=== PATIENT | female | born 1965 | race Hispanic/Latino ===

== ENCOUNTER 2019-08-02 13:13 | Emergency (ER) | payer MEDICAID ==
[2019-08-02 14:26] LABS: Basophils % (Auto) 0.8 % (0.0-1.8); Eosinophils # (Auto) 0.3 K/mm3 (0.0-0.4); Eosinophils % (Auto) 9.4 % (0.0-4.3); Hematocrit 27.6 % (30.3-42.9); Hemoglobin 9.2 gm/dl (10.1-14.3); Lymphocytes # (Auto) 0.5 K/mm3 (1.2-5.4); Lymphocytes % (Auto) 15.8 % (13.4-35.0); Mean Corpuscular HGB Conc 33 % (30-34); Mean Corpuscular Volume 87 fl (79-97); Monocytes # (Auto) 0.5 K/mm3 (0.0-0.8); Monocytes % (Auto) 15.6 % (0.0-7.3); Platelet Count 110 K/mm3 (140-440); Red Blood Count 3.16 M/mm3 (3.65-5.03); Red Cell Distribution Width 13.5 % (13.2-15.2)
--- NOTE | 2019-08-02 14:36 | Emergency Department Report ---
ED Chest Pain HPI - General Chief Complaint: Chest Pain Stated Complaint: CHEST PAIN Time Seen by Provider: 08/02/19 14:28 Source: EMS Mode of arrival: Stretcher Limitations: No Limitations - History of Present Illness Initial Comments: is a 53-year-old female that presents emergency room with complaints of right-sided chest pain and dizziness and itching to her back. She states her chest pain started this morning at 6 AM. Patient states it's in her right chest and is worse with palpation and movement and better with rest. Patient states her chest pain is a 3 out of 10. Patient denies chest pain radiating. Patient denies shortness of breath. She states she has a history of a left bundle- branch block. Patient states her dizziness started 3 days ago. Patient states it is better with rest and worse with standing up fast. Patient denies blurry vision. Patient denies headache. Patient denies passing out. Patient denies trauma. Patient denies headache. Patient states her back has been itching for 3 days. Patient states unable to take Benadryl since she is allergic. Patient denies bee stings or insect bite. Patient states he recently changed her laundry detergent. Patient denies fever and chills. MD Complaint: chest pain -: Sudden Onset: during rest Pain Location: right chest Pain Radiation: none Severity: mild Severity scale (0 -10): 3 Quality: pressure Consistency: constant Improves With: rest Worsens With: palpation, movement re: denies: nausea, vomting, diaphoresis, dyspnea, sense of impending doom Other Symptoms: denies: cough, fever, syncope, rash, acid taste in mouth, leg swelling, palpitations, burping Treatments Prior to Arrival: none Aspirin use within the Past 7 Days: (0) No - Related Data On Oral Contraceptives: No Previous Rx's Medication Instructions Recorded Last Taken Type Clindamycin [Clindamycin CAP] 300 mg PO Q8H #21 cap 02/09/19 Unknown Rx predniSONE [Deltasone] 20 mg PO QDAY #5 tab 02/09/19 Unknown Rx methylPREDNISolone [Medrol 4MG 4 mg PO DAILY 6 Days #1 tab.ds.pk 08/02/19 Unknown Rx DOSEPAK (21 tabs)] Allergies Allergy/AdvReac Type Severity Reaction Status Date / Time diphenhydramine Allergy Itching Verified 02/09/19 12:47 [From Benmateuszryl] folic acid Allergy Itching Verified 02/09/19 12:47 SULFATE Allergy Itching Uncoded 02/09/19 12:47 Heart Score - HEART Score History: Slightly suspicious EKG: Normal Age: 45-65 Risk factors: No known risk factors Troponin: < normal limit HEART Score: 1 ED Review of Systems ROS: Stated complaint: CHEST PAIN Other details as noted in HPI Constitutional: denies: chills, fever Eyes: denies: eye pain, eye discharge, vision change ENT: denies: ear pain, throat pain Respiratory: denies: cough, shortness of breath, wheezing Cardiovascular: chest pain. denies: palpitations Endocrine: no symptoms reported Gastrointestinal: denies: abdominal pain, nausea, diarrhea Genitourinary: denies: urgency, dysuria, discharge Musculoskeletal: denies: back pain, joint swelling, arthralgia Skin: as per HPI, pruritus. denies: rash, lesions Neurological: as per HPI, other. denies: headache, weakness, paresthesias Psychiatric: denies: anxiety, depression Hematological/Lymphatic: denies: easy bleeding, easy bruising ED Past Medical Hx - Past Medical History Previous Medical History?: Yes Hx Asthma: Yes Hx HIV: Yes Additional medical history: HIV ,bronchitis - Surgical History Past Surgical History?: No Additional Surgical History: C SECTION X2 TUBAL LIGATATION - Family History Family history: no significant - Social History Smoking Status: Current Every Day Smoker Substance Use Type: None - Medications Home Medications: Home Medications Medication Instructions Recorded Confirmed Last Taken Type Clindamycin [Clindamycin CAP] 300 mg PO Q8H #21 cap 02/09/19 Unknown Rx predniSONE [Deltasone] 20 mg PO QDAY #5 tab 02/09/19 Unknown Rx methylPREDNISolone [Medrol 4MG 4 mg PO DAILY 6 Days #1 tab.ds.pk 08/02/19 Unk nown Rx DOSEPAK (21 tabs)] ED Physical Exam - General Limitations: No Limitations General appearance: alert, in no apparent distress - Head Head exam: Present: atraumatic, normocephalic - Eye Eye exam: Present: normal appearance - ENT ENT exam: Present: mucous membranes moist - Neck Neck exam: Present: normal inspection - Respiratory Respiratory exam: Present: normal lung sounds bilaterally, chest wall tenderness. Absent: respiratory distress, wheezes, rales - Cardiovascular Cardiovascular Exam: Present: regular rate, normal rhythm. Absent: systolic murmur, diastolic murmur, rubs, gallop - GI/Abdominal GI/Abdominal exam: Present: soft, normal bowel sounds - Extremities Exam Extremities exam: Present: normal inspection - Back Exam Back exam: Present: normal inspection - Neurological Exam Neurological exam: Present: alert, oriented X3 - Psychiatric Psychiatric exam: Present: normal affect, normal mood - Skin Skin exam: Present: warm, dry, intact, rash (redness noted to the back with urticaria), erythema, urticaria ED Course Vital Signs 08/02/19 08/02/19 08/02/19 13:32 15:04 15:16 Temperature 98.6 F Pulse Rate 80 76 77 Respiratory 18 21 22 Rate Blood Pressure 105/69 105/69 Blood Pressure 124/84 [Right] O2 Sat by Pulse 100 100 100 Oximetry 08/02/19 08/02/19 08/02/19 15:29 15:30 15:31 Temperature Pulse Rate 80 79 Respiratory 18 10 L 17 Rate Blood Pressure 105/69 Blood Pressure 115/62 [Right] O2 Sat by Pulse 100 100 Oximetry 08/02/19 08/02/19 08/02/19 15:45 16:00 16:15 Temperature Pulse Rate 78 80 79 Respiratory 15 13 21 Rate Blood Pressure 102/62 115/72 Blood Pressure [Right] O2 Sat by Pulse 100 100 99 Oximetry 08/02/19 08/02/19 08/02/19 16:30 16:45 16:46 Temperature Pulse Rate 78 84 80 Respiratory 22 13 18 Rate Blood Pressure 97/58 97/58 Blood Pressure 97/58 [Right] O2 Sat by Pulse 100 100 100 Oximetry 08/02/19 08/02/19 08/02/19 17:01 17:15 17:30 Temperature Pulse Rate 86 81 83 Respiratory 17 21 24 Rate Blood Pressure 110/81 110/81 113/69 Blood Pressure [Right] O2 Sat by Pulse 99 100 100 Oximetry 08/02/19 08/02/19 08/02/19 17:45 18:00 18:15 Temperature Pulse Rate 80 77 77 Respiratory 24 22 24 Rate Blood Pressure 113/69 107/61 107/61 Blood Pressure [Right] O2 Sat by Pulse 100 99 99 Oximetry 08/02/19 08/02/19 18:30 19:30 Temperature Pulse Rate 76 80 Respiratory 23 23 Rate Blood Pressure 117/74 113/76 Blood Pressure [Right] O2 Sat by Pulse 100 99 Oximetry - Reevaluation(s) Reevaluation #1: Patient is still complaining of itching to her back. Patient denies chest pain. Patient states her dizziness has resolved. Patient will be given a liter of fluids and Solu-Medrol. I discussed all results with patient. I discussed plan of care with patient. Patient agrees with plan of care. Patient stable for discharge. Patient will be discharged home after saline bolus. I discussed all discharge instructions with patient. Patient voiced understanding of all instructions. 08/02/19 16:00 JOSE score - Jose Score Age > 65: (0) No Aspirin use within the Past 7 Days: (0) No 3 or more CAD Risk Factors: (0) No 2 or more Angina events in past 24 hrs: (0) No Known CAD with more than 50% Stenosis: (0) No Elevated Cardiac Markers: (0) No ST Deviation Greater than 0.5mm: (0) No JOSE Score: 0 ED Medical Decision Making - Lab Data Result diagrams: 08/02/19 14:01 08/02/19 14:01 - EKG Data -: EKG Interpreted by Ut EKG shows normal: sinus rhythm, axis, intervals, ST-T waves Rate: normal - EKG Data Interpretation: other (left bundle branch block) - Radiology Data Radiology results: report reviewed No acute findings on chest x-ray. - Medical Decision Making I've-year-old female that presents emergency room with complaints of right-sided chest pain and dizziness. Patient's dizziness secondary to inadequate water intake and dehydration. Patient's chest pain is musculoskeletal. Patient also complained of pruritus to the back. The pruritus consistent with contact dermatitis and allergic reaction. Patient given Solu-Medrol and fluids in the ER. Patient's symptoms completely resolved prior to discharge. Patient's labs unremarkable. Patient's EKG negative. Patient's chest x-ray negative. Patient's information faxed over to our local cardiology group for further outpatient workup. - Differential Diagnosis cp. dizziness. dehydration. allergic rxn. Critical care attestation.: If time is entered above; I have spent that time in minutes in the direct care of this critically ill patient, excluding procedure time. ED Disposition Clinical Impression: Dizziness, LBBB (left bundle branch block), Acute chest wall pain, Dehydration Chest pain Qualifiers: Chest pain type: unspecified Qualified Code(s): R07.9 - Chest pain, unspecified Anemia Qualifiers: Anemia type: unspecified type Qualified Code(s): D64.9 - Anemia, unspecified Contact dermatitis Qualifiers: Contact dermatitis type: allergic Contact dermatitis trigger: unspecified trigger Qualified Code(s): L23.9 - Allergic contact dermatitis, unspecified cause Disposition: TO HOME OR SELFCARE Is pt being admited?: No Does the pt Need Aspirin: No Condition: Stable Instructions: Chest Pain (ED), Dehydration (ED), Contact Dermatitis (ED), Iron Rich Diet (ED), Costochondritis (ED), Iron Deficiency Anemia (ED), Anemia (ED) Additional Instructions: Patient to follow-up with primary care in 2-3 days. Patient to follow-up with motion picture projectionist in 2-3 days. Patient to return to ER if condition worsens. Patient to take meds as directed. Patient to continue all previous medications. Patient increase water. Patient to rest. Patient to avoid strenuous exercise until cleared by primary care and motion picture projectionist. Patient increase water. Prescriptions: methylPREDNISolone [Medrol 4MG DOSEPAK (21 tabs)] 4 mg PO DAILY 6 Days #1 tab.ds.pk Referrals: PRIMARY MD TUNDE [Primary Care Provider] - 2-3 Days MIR CARTER MD [Staff Physician] - 2-3 Days Time of Disposition: 16:07
[2019-08-02 14:38] LABS: INR 1.02 (0.87-1.13)
[2019-08-02 14:39] LABS: Partial Thromboplastin Time 32.2 Sec. (24.2-36.6)
--- NOTE | 2019-08-02 14:41 | XRay Report ---
CHEST 1 VIEW INDICATION / CLINICAL INFORMATION: Chest Pain. COMPARISON: None available. FINDINGS: SUPPORT DEVICES: None. HEART / MEDIASTINUM: No significant abnormality. LUNGS / PLEURA: No significant pulmonary or pleural abnormality.. No pneumothorax. ADDITIONAL FINDINGS: Nipple shadows are noted bilaterally. IMPRESSION: 1. No acute findings. Signer Name: Dayne Hernandez MD Signed: 08/02/2019 2:37 PM Workstation Name: [id number]
[2019-08-02 14:45] LABS: Alanine Aminotransferase 5 units/L (7-56); Albumin 3.4 g/dL (3.9-5); BUN/Creatinine Ratio 19; Blood Urea Nitrogen 17 mg/dL (7-17); Calcium 8.5 mg/dL (8.4-10.2); Hemolysis Index 10
[2019-08-02] MEDS ORDERED: SODIUM CHLORIDE 0.9% 1000 ML 1,000 ML IV ONE (16:00)
[2019-08-02] MEDS ORDERED: methylPREDNISolone Sod Succinate 125 MG/2 ML INJ IV ONE (16:00)
[2019-08-02 20:13] VITALS: BP 113/76
== END 2019-08-02 19:50 | disposition home or self-care (01) ==
LOC: ED 13:13
DX: I44.7 Left bundle-branch block, unspecified (principal); L23.9 Allergic contact dermatitis, unspecified cause; E86.0 Dehydration; D64.9 Anemia, unspecified; J45.909 Unspecified asthma, uncomplicated; F17.200 Nicotine dependence, unspecified, uncomplicated; Z21 Asymptomatic human immunodeficiency virus [HIV] infection status; Z98.51 Tubal ligation status; Z79.899 Other long term (current) drug therapy; Z88.8 Allergy status to other drugs, medicaments and biological substances
CPT/HCPCS: 36415; 71045; 80053; 84484; 85025; 85610; 85730; 93005; 93010; 96361; 96374; 99284; J2930; J7030

== ENCOUNTER 2019-08-13 16:27 | Observation (INO) | payer MEDICAID ==
--- NOTE | 2019-08-13 18:12 | Event Note ---
ED Screening Note Date of service: 08/13/19 Time: 18:10 ED Screening Note: Pt complains of CP and SOB ongoing since last visit last week states 2 people said she had slurred speech today-+headache This initial assessment/diagnostic orders/clinical plan/treatment(s) is/are subject to change based on patients health status, clinical progression and re- assessment by fellow clinical providers in the ED. Further treatment and workup at subsequent clinical providers discretion. Patient/guardian urged not to elope from the ED as their condition may be serious if not clinically assessed and managed. Initial orders include: labs CT CXR
--- NOTE | 2019-08-13 19:03 | Cat Scan Report ---
CT BRAIN: 08/13/2019 INDICATION / CLINICAL INFORMATION: slurred speech, headache. COMPARISON: None available. FINDINGS: BRAIN/INTRACRANIAL STRUCTURES: Unenhanced CT images of the brain demonstrate no evidence of acute int racranial abnormality. Ventricles and sulci are slightly prominent in size for a patient of this age, consistent with diffus e cerebral atrophy. There is no evidence of hemorrhage or mass. There is no evidence of acute ischemic injury. There are no abnormal extra-axial fluid collections. EXTRACRANIAL STRUCTURES: Unremarkable. IMPRESSION: No acute abnormality. All CT scans at this location are performed using dose reduction to ALARA by means of automated expos ure control. Signer Name: Boris Lopez MD Signed: 08/13/2019 6:59 PM Workstation Name: [id number]
--- NOTE | 2019-08-13 19:04 | XRay Report ---
CHEST 2 VIEWS INDICATION / CLINICAL INFORMATION: MAIN: Chest Pain FOR ABOUT A WEEK . COMPARISON: Chest x-ray 08/02/2019 FINDINGS: SUPPORT DEVICES: None. HEART / MEDIASTINUM: Mild cardiomegaly with left ventricular configuration, unchanged LUNGS / PLEURA: No significant pulmonary or pleural abnormality. No pneumothorax. ADDITIONAL FINDINGS: Bilateral symmetric nipple shadows again noted. IMPRESSION: 1. Cardiomegaly without CHF Signer Name: Lenard Carbajal MD Signed: 08/13/2019 7:00 PM Workstation Name: [id number]
[2019-08-13 19:50] LABS: BUN/Creatinine Ratio 17; Blood Urea Nitrogen 15 mg/dL (7-17); Calcium 8.9 mg/dL (8.4-10.2); Hemolysis Index 3
[2019-08-13] MEDS ORDERED: ASPIRIN 81 MG TAB CHEW ONE (22:19)
[2019-08-13] MEDS ORDERED: NITROGLYCERIN 2% OINT 1 GM TP ONE (22:23)
[2019-08-13] MEDS: ASPIRIN 81 MG TAB CHEW PO ONE ×2 (22:24→22:26)
--- NOTE | 2019-08-13 22:30 | Emergency Department Report ---
HPI - General Chief Complaint: Chest Pain Time Seen by Provider: 08/13/19 18:12 - HPI HPI: Room 38 The pt is a 53 y/o F p/w a cc of CP. The pt states she'd had substernal CP intermittently since YD. Pt describes the pain as sharp in nature. Pt admits to SOB and nausea with her CP but denies vomiting or diaphoresis. Pt states her last stress test occurred in 2013 but she's never had a cardiac cath. the pt states her family told her her speech seemed slurred yesterday but the pt does not notice it ED Past Medical Hx - Past Medical History Hx Asthma: Yes Hx HIV: Yes (nl CD4 2016) Additional medical history: HIV ,bronchitis - Surgical History Additional Surgical History: C SECTION X2 TUBAL LIGATATION - Family History Family history: no significant - Social History Smoking Status: Current Every Day Smoker (/ ppd) Substance Use Type: Alcohol (rarely), Marijuana - Medications Home Medications: Home Medications Medication Instructions Recorded Confirmed Last Taken Type Clindamycin [Clindamycin CAP] 300 mg PO Q8H #21 cap 02/09/19 Unknown Rx predniSONE [Deltasone] 20 mg PO QDAY #5 tab 02/09/19 Unknown Rx methylPREDNISolone [Medrol 4MG 4 mg PO DAILY 6 Days #1 tab.ds.pk 08/02/19 Unknown Rx DOSEPAK (21 tabs)] ED Review of Systems ROS: Stated complaint: CHEST PAIN Other details as noted in HPI Constitutional: denies: diaphoresis Eyes: denies: eye pain ENT: denies: throat pain Respiratory: shortness of breath, SOB with exertion Cardiovascular: chest pain Endocrine: no symptoms reported Gastrointestinal: nausea. denies: vomiting Genitourinary: denies: dysuria Musculoskeletal: denies: back pain Neurological: denies: headache Physical Exam - Physical Exam Vital Signs: Vital Signs 08/13/19 08/13/19 17:16 18:14 Temperature 98.4 F Pulse Rate 98 H Respiratory 16 Rate Blood Pressure 87/69 Blood Pressure 110/70 [Right] O2 Sat by Pulse 100 Oximetry Physical Exam: GEN: WD WN F lying on stretcher in NAD HEENT: NCAT, EOMI NECK:Trachea midline, no stridor CV: rrr no m/r/g Pulm: CTAB. no resp distress ABD: s/nt/nd +BS Neuro: GCS 15 SKIN: no diaphoresis MS: no evidence of acute injury ED Course Vital Signs 08/13/19 08/13/19 17:16 18:14 Temperature 98.4 F Pulse Rate 98 H Respiratory 16 Rate Blood Pressure 87/69 Blood Pressure 110/70 [Right] O2 Sat by Pulse 100 Oximetry ED Medical Decision Making - Lab Data Result diagrams: 08/14/19 00:01 08/13/19 19:17 Laboratory Tests 08/13/19 08/13/19 08/14/19 19:17 19:17 00:01 WBC 3.6 L RBC 3.21 L Hgb 9.5 L Hct 29.0 L MCV 90 MCH 30 MCHC 33 RDW 14.5 Plt Count 113 L Lymph % (Auto) Scrubbing Machine Operator Harmon % (Auto) Scrubbing Machine Operator Eos % (Auto) Scrubbing Machine Operator Baso % (Auto) Scrubbing Machine Operator Lymph # Scrubbing Machine Operator Harmon # Scrubbing Machine Operator Eos # Scrubbing Machine Operator Baso # Scrubbing Machine Operator Seg Neutrophils % Scrubbing Machine Operator Seg Neutrophils # Scrubbing Machine Operator Sodium 149 H Potassium 3.6 Chloride 115.7 H Carbon Dioxide 23 Anion Gap 14 BUN 15 Creatinine 0.9 Estimated GFR > 60 BUN/Creatinine Ratio 17 Glucose 93 Calcium 8.9 Troponin T < 0.010 NT-Pro-B Natriuret Pep 117.0 - EKG Data -: EKG Interpreted by Me EKG shows normal: sinus rhythm Rate: normal - EKG Data When compared to previous EKG there are: changes noted Interpretation: nonspecific ST-T wave petrona (TWIs in leads 2, 3, avF) - Radiology Data Radiology results: report reviewed (CXR, CT Head), image reviewed (CXR, CT head) interpreted by me: CR- no focal infiltrate, no ptx [address] [address] XRay Report Signed Patient: KAM ROBLERO MR#: [id number] 57 : 1965 Acct:[id number] Age/Sex: 53 / F ADM Date: 08/13/19 Loc: ED Attending Dr: Ordering Physician: LYNETTE WILCOX Date of Service: 08/13/19 Procedure(s): XR chest routine 2V Accession Number(s): [id number] cc: LYNETTE WILCOX Fluoro Time In Minutes: CHEST 2 VIEWS INDICATION / CLINICAL INFORMATION: MAIN: Chest Pain FOR ABOUT A WEEK . COMPARISON: Chest x-ray 08/02/2019 FINDINGS: SUPPORT DEVICES: None. HEART / MEDIASTINUM: Mild cardiomegaly with left ventricular configuration, unchanged LUNGS / PLEURA: No significant pulmonary or pleural abnormality. No pneumothorax. ADDITIONAL FINDINGS: Bilateral symmetric nipple shadows again noted. IMPRESSION: 1. Cardiomegaly without CHF Signer Name: Lenard Carbajal MD Signed: 08/13/2019 7:00 PM Workstation Name: [id number] Transcribed By: TL Dictated By: Lenard Carbajal MD Electronically Authenticated By: Lenard Carbajal MD Signed Date/Time: 08/13/191899 DD/ 58 TD/TT: [facility] [address] [place] [address] Cat Scan Report Signed Patient: KAM ROBLERO MR#: [id number] 57 : 1965 Acct:[id number] Age/Sex: 53 / F ADM Date: 08/13/19 Loc: ED Attending Dr: Ordering Physician: LYNETTE WILCOX Date of Service: 08/13/19 Procedure(s): CT head/brain wo con Accession Number(s): [id number] cc: LYNETTE WILCOX CT BRAIN: 08/13/2019 INDICATION / CLINICAL INFORMATION: slurred speech, headache. COMPARISON: None available. FINDINGS: BRAIN/INTRACRANIAL STRUCTURES: Unenhanced CT images of the brain demonstrate no evidence of acute intracranial abnormality. Ventricles and sulci are slightly prominent in size for a patient of this age, consistent with diffuse cerebral atrophy. There is no evidence of hemorrhage or mass. There is no evidence of acute ischemic injury. There are no abnormal extra-axial fluid collections. EXTRACRANIAL STRUCTURES: Unremarkable. IMPRESSION: No acute abnormality. All CT scans at this location are performed using dose reduction to ALARA by means of automated exposure control. Signer Name: Boris Lopez MD Signed: 08/13/2019 6:59 PM Workstation Name: [id number] Transcribed By: AO Dictated By: Boris Lopez MD Electronically Authenticated By: Boris Lopez MD Signed Date/Time: 08/13/191858 DD/ 57 TD/TT: - Differential Diagnosis ACS, pericarditis, GERD Critical care attestation.: If time is entered above; I have spent that time in minutes in the direct care of this critically ill patient, excluding procedure time. ED Disposition Clinical Impression: Chest pain Disposition: OP ADMIT IP TO THIS HOSP Is pt being admited?: Yes Does the pt Need Aspirin: Yes Condition: Fair Instructions: Chest Pain (ED) Referrals: KRISTIAN DONAHUE MD [Primary Care Provider] - 3-5 Days Time of Disposition: 01:00 (Hospitalist notified (Dr Emperatriz Chauhan))
[2019-08-14 00:53] LABS: Hemoglobin 9.5 gm/dl (10.1-14.3); Mean Corpuscular HGB Conc 33 % (30-34); Mean Corpuscular Volume 90 fl (79-97); Platelet Count 113 K/mm3 (140-440); Red Blood Count 3.21 M/mm3 (3.65-5.03); Red Cell Distribution Width 14.5 % (13.2-15.2)
[2019-08-14] MEDS ORDERED: ONDANSETRON 4 MG/2 ML INJ IV PRN (01:13)
[2019-08-14] MEDS ORDERED: MORPHINE 2 MG/1 ML INJ IV PRN (01:13)
[2019-08-14] MEDS ORDERED: ACETAMINOPHEN 325 MG TAB PO PRN (01:13)
[2019-08-14] MEDS ORDERED: NITROGLYCERIN 0.4 MG TAB SUBL SL PRN (01:21)
--- NOTE | 2019-08-14 01:44 | History and Physical Report ---
<CHELSI THOMPSON Travon - Last Filed: 08/14/19 01:39> History of Present Illness Date of examination: 08/14/19 Date of admission: 08/14/2019 Chief complaint: Chest Pain History of present illness: 53-year-old -Citizen Of [place] female who is an ongoing smoker with history of HIV, asthma, and bronchitis who presents [facility] ED with complaints of intermittent chest pain for the past 2-3 days. Patient states that she has been experiencing intermittent left side chest pain with radiation to left breast, shortness of breath and nausea for the past 2-3 days. She describes her pain as sharp/pressure and rates it 7/10. She denies emesis and diaphoresis. Additionally she complains of intermittent generalized headache. CT head was negative for acute abnormalities. Patient admits to being off of antiretroviral medication for the past 2 years because she "got tired of taking a pill every day". Patient has been living in the clinic area for the past 10 months. She recently established care with a PCP (Dr. Indy Forrest), and has a scheduled appointment for next week. Past History Past Medical History: HIV/AIDS (off antiretroviral meds for past 2yrs), other (asthma, bronchitis) Past Surgical History: (x2), Other (tubal ligation) Social history: lives with family, smoking (1/3 pack per day, recreational marijuana use), alcohol abuse (occasional EtOH use) Family history: no significant family history Medications and Allergies Allergies Allergy/AdvReac Type Severity Reaction Status Date / Time diphenhydramine Allergy Itching Verified 02/09/19 12:47 [From Benadryl] folic acid Allergy Itching Verified 02/09/19 12:47 SULFATE Allergy Itching Uncoded 02/09/19 12:47 Home Medications Medication Instructions Recorded Confirmed Last Taken Type methylPREDNISolone [Medrol 4MG 4 mg PO DAILY 6 Days #1 tab.ds.pk 08/02/19 08/14/19 Unknown Rx DOSEPAK (21 tabs)] Active Meds: Active Medications Acetaminophen (Tylenol) 650 mg PO Q4H PRN PRN Reason: Pain MILD(1-3)/Fever >100.5/ZAPIEN Aspirin (Baby Aspirin) 81 mg PO QDAY MALIKA Atorvastatin Calcium (Lipitor) 20 mg PO QHS MALIKA Dextrose/Sodium Chloride (D5/0.45ns) 1,000 mls @ 75 mls/hr IV DIRECT MALIKA Morphine Sulfate (Morphine) 2 mg IV Q4H PRN PRN Reason: Pain, Moderate (4-6) Nitroglycerin (Nitrostat) 0.4 mg SL Q5M PRN PRN Reason: Chest Pain Ondansetron HCl (Zofran) 4 mg IV Q6H PRN PRN Reason: Nausea And Vomiting Sodium Chloride (Sodium Chloride Flush Syringe 10 Ml) 10 ml IV BID MALIKA Sodium Chloride (Sodium Chloride Flush Syringe 10 Ml) 10 ml IV PRN PRN PRN Reason: LINE FLUSH Sodium Chloride (Sodium Chloride Flush Syringe 10 Ml) 10 ml IV PRN PRN PRN Reason: LINE FLUSH Review of Systems All systems: negative Cardiovascular: chest pain (under left breast), shortness of breath Gastrointestinal: nausea Neurological: headaches Exam - Physical Exam Narrative exam: Physical exam General appearance: Present: No apparent distress, alert and oriented 3, well- developed, thin, -Citizen Of [place] female - EENT Eyes: Present: PERRL, EOM intact ENT: hearing intact - Neck Neck: Present: supple, normal ROM - Respiratory Respiratory effort: Non-labored Respiratory: CTA bilaterally - Cardiovascular Heart rate: 91 (bpm) Rhythm: SR, left bundle branch block, nonspecific ST abnormalities Heart Sounds: Present: S1 & S2. Absent: rub, click - Extremities Extremities: no ischemia, pulses intact, - Peripheral Assessment Peripheral Pulses: within normal limits - Abdominal General gastrointestinal: soft, non-tender, normal bowel sounds - Integumentary Integumentary: Present: warm, dry - Musculoskeletal Musculoskeletal: able to move all extremities 4 -Neurological Neurological: CN II-XII grossly intact - Psychiatric Psychiatric: cooperative - Constitutional Vitals: Temp Pulse Resp BP Pulse Ox 98.4 F 86 20 129/82 99 08/14/19 01:12 08/14/19 01:12 08/14/19 01:12 08/14/19 01:12 08/14/19 01:12 Results - Labs CBC & Chem 7: 08/14/19 00:01 08/13/19 19:17 Labs: Laboratory Last Values WBC 3.6 K/mm3 (4.5-11.0) L 08/14/19 00:01 RBC 3.21 M/mm3 (3.65-5.03) L 08/14/19 00:01 Hgb 9.5 gm/dl (10.1-14.3) L 08/14/19 00:01 Hct 29.0 % (30.3-42.9) L 08/14/19 00:01 MCV 90 fl (79-97) 08/14/19 00:01 MCH 30 pg (28-32) 08/14/19 00:01 MCHC 33 % (30-34) 08/14/19 00:01 RDW 14.5 % (13.2-15.2) 08/14/19 00:01 Plt Count 113 K/mm3 (140-440) L 08/14/19 00:01 Lymph % (Auto) Customer Service Associate 08/14/19 00:01 Bath % (Auto) Customer Service Associate 08/14/19 00:01 Eos % (Auto) Customer Service Associate 08/14/19 00:01 Baso % (Auto) Customer Service Associate 08/14/19 00:01 Lymph # Customer Service Associate 08/14/19 00:01 Bath # Customer Service Associate 08/14/19 00:01 Eos # Customer Service Associate 08/14/19 00:01 Baso # Customer Service Associate 08/14/19 00:01 Seg Neutrophils % Customer Service Associate 08/14/19 00:01 Seg Neutrophils # Customer Service Associate 08/14/19 00:01 Sodium 149 mmol/L (137-145) H 08/13/19 19:17 Potassium 3.6 mmol/L (3.6-5.0) 08/13/19 19:17 Chloride 115.7 mmol/L (98-107) H 08/13/19 19:17 Carbon Dioxide 23 mmol/L (22-30) 08/13/19 19:17 Anion Gap 14 mmol/L 08/13/19 19:17 BUN 15 mg/dL (7-17) 08/13/19 19:17 Creatinine 0.9 mg/dL (0.7-1.2) 08/13/19 19:17 Estimated GFR > 60 ml/min 08/13/19 19:17 BUN/Creatinine Ratio 17 % 08/13/19 19:17 Glucose 93 mg/dL (65-100) 08/13/19 19:17 Calcium 8.9 mg/dL (8.4-10.2) 08/13/19 19:17 Troponin T < 0.010 ng/mL (0.00-0.029) 08/13/19 19:17 NT-Pro-B Natriuret Pep 117.0 pg/mL (0-900) 08/13/19 19:17 - Imaging and Cardiology Imaging and Cardiology: CXR: FINDINGS: SUPPORT DEVICES: None. HEART / MEDIASTINUM: Mild cardiomegaly with left ventricular configuration, unchanged LUNGS / PLEURA: No significant pulmonary or pleural abnormality. No pneumothorax. ADDITIONAL FINDINGS: Bilateral symmetric nipple shadows again noted. IMPRESSION: 1. Cardiomegaly without CHF CT Head: FINDINGS: BRAIN/INTRACRANIAL STRUCTURES: Unenhanced CT images of the brain demonstrate no evidence of acute intracranial abnormality. Ventricles and sulci are slightly prominent in size for a patient of this age, consistent with diffuse cerebral atrophy. There is no evidence of hemorrhage or mass. There is no evidence of acute ischemic injury. There are no abnormal extra-axial fluid collections. EXTRACRANIAL STRUCTURES: Unremarkable. IMPRESSION: No acute abnormality. Assessment and Plan Assessment and plan: 53-year-old -Citizen Of [place] female who is an ongoing smoker with history of HIV noncompliant with meds, asthma, and bronchitis who presents [facility] ED with complaints of intermittent chest pain for the past 2-3 days. Additionally she complains of intermittent generalized headache. CT head was negative for acute abnormalities. Acute Chest Pain R/O ACS -EKG shows sinus rhythm with nonspecific ST abnormalities -Initiate chest pain protocol -Continuous telemetry monitoring -Continue supportive care -Pain mgmt -Troponin neg x1 , will continue to trend -Lexiscan pending -Cardiology consulted Hyernatremia -Na on admission 149 -Slowly correct Na with isotonic IVF -Continue to monitor Thrombocytopenia -Plt 113 -Denies use of antiplatelet drugs -Hold ASA Anemia -Hemoglobin on admission 9.5 -No s/s of active bleeding -Continue to monitor hemoglobin -Transfuse as needed Tobacco abuse -Smokes 1/3 pack per day -Counseled for cessation -Nicotine patch prn Asthma -Albuterol prn HIV -Off anti-retroviral meds for the past 2 years -Recently established with Dr. Marilin Forrest (PCP), who will check CD4 and restart HAART DVT PPX -SCD's -Hold off on systemic anticoagulation due to anemia and thrombocytopenia Advance Directives: No VTE prophylaxis?: Chemical Plan of care discussed with patient/family: Yes <WANDER CANCHOLA - Last Filed: 08/14/19 05:44> History of Present Illness Date of admission: 08/14/19 01:13 Medications and Allergies Active Meds: Active Medications Acetaminophen (Tylenol) 650 mg PO Q4H PRN PRN Reason: Pain MILD(1-3)/Fever >100.5/ZAPIEN Albuterol (Proventil) 2.5 mg IH Q4HRT PRN PRN Reason: Shortness Of Breath Atorvastatin Calcium (Lipitor) 20 mg PO QHS [facility] Dextrose/Sodium Chloride (D5/0.45ns) 1,000 mls @ 75 mls/hr IV DIRECT MALIKA Last Admin: 08/14/19 04:42 Dose: 75 mls/hr Documented by: Morphine Sulfate (Morphine) 2 mg IV Q4H PRN PRN Reason: Pain, Moderate (4-6) Nicotine (Habitrol) 14 mg TD QDAY [facility] Nitroglycerin (Nitrostat) 0.4 mg SL Q5M PRN PRN Reason: Chest Pain Ondansetron HCl (Zofran) 4 mg IV Q6H PRN PRN Reason: Nausea And Vomiting Sodium Chloride (Sodium Chloride Flush Syringe 10 Ml) 10 ml IV BID MALIKA Sodium Chloride (Sodium Chloride Flush Syringe 10 Ml) 10 ml IV PRN PRN PRN Reason: LINE FLUSH Exam - Constitutional Vitals: Temp Pulse Resp BP Pulse Ox 98.4 F 86 20 129/82 99 08/14/19 01:12 08/14/19 01:12 08/14/19 01:12 08/14/19 01:12 08/14/19 01:12 Results - Labs CBC & Chem 7: 08/14/19 00:01 08/14/19 03:46 Labs: Laboratory Last Values WBC 3.6 K/mm3 (4.5-11.0) L 08/14/19 00:01 RBC 3.21 M/mm3 (3.65-5.03) L 08/14/19 00:01 Hgb 9.5 gm/dl (10.1-14.3) L 08/14/19 00:01 Hct 29.0 % (30.3-42.9) L 08/14/19 00:01 MCV 90 fl (79-97) 08/14/19 00:01 MCH 30 pg (28-32) 08/14/19 00:01 MCHC 33 % (30-34) 08/14/19 00:01 RDW 14.5 % (13.2-15.2) 08/14/19 00:01 Plt Count 113 K/mm3 (140-440) L 08/14/19 00:01 Lymph % (Auto) Customer Service Associate 08/14/19 00:01 Bath % (Auto) Customer Service Associate 08/14/19 00:01 Eos % (Auto) Customer Service Associate 08/14/19 00:01 Baso % (Auto) Customer Service Associate 08/14/19 00:01 Lymph # Customer Service Associate 08/14/19 00:01 Bath # Customer Service Associate 08/14/19 00:01 Eos # Customer Service Associate 08/14/19 00:01 Baso # Customer Service Associate 08/14/19 00:01 Add Manual Diff Complete 08/14/19 00:01 Total Counted 100 08/14/19 00:01 Seg Neutrophils % Customer Service Associate 08/14/19 00:01 Seg Neuts % (Manual) 75.0 % (40.0-70.0) H 08/14/19 00:01 Band Neutrophils % 0 % 08/14/19 00:01 Lymphocytes % (Manual) 8.0 % (13.4-35.0) L 08/14/19 00:01 Reactive Lymphs % (Man) 0 % 08/14/19 00:01 Monocytes % (Manual) 10.0 % (0.0-7.3) H 08/14/19 00:01 Eosinophils % (Manual) 7.0 % (0.0-4.3) H 08/14/19 00:01 Basophils % (Manual) 0 % (0.0-1.8) 08/14/19 00:01 Metamyelocytes % 0 % 08/14/19 00:01 Myelocytes % 0 % 08/14/19 00:01 Promyelocytes % 0 % 08/14/19 00:01 Blast Cells % 0 % 08/14/19 00:01 Nucleated RBC % Not Reportable 08/14/19 00:01 Seg Neutrophils # Customer Service Associate 08/14/19 00:01 Seg Neutrophils # Man 2.7 K/mm3 (1.8-7.7) 08/14/19 00:01 Band Neutrophils # 0.0 K/mm3 08/14/19 00:01 Lymphocytes # (Manual) 0.3 K/mm3 (1.2-5.4) L 08/14/19 00:01 Abs React Lymphs (Man) 0.0 K/mm3 08/14/19 00:01 Monocytes # (Manual) 0.4 K/mm3 (0.0-0.8) 08/14/19 00:01 Eosinophils # (Manual) 0.3 K/mm3 (0.0-0.4) 08/14/19 00:01 Basophils # (Manual) 0.0 K/mm3 (0.0-0.1) 08/14/19 00:01 Metamyelocytes # 0.0 K/mm3 08/14/19 00:01 Myelocytes # 0.0 K/mm3 08/14/19 00:01 Promyelocytes # 0.0 K/mm3 08/14/19 00:01 Blast Cells # 0.0 K/mm3 08/14/19 00:01 WBC Morphology Not Reportable 08/14/19 00:01 Hypersegmented Neuts Not Reportable 08/14/19 00:01 Hyposegmented Neuts Not Reportable 08/14/19 00:01 Hypogranular Neuts Not Reportable 08/14/19 00:01 Smudge Cells Not Reportable 08/14/19 00:01 Toxic Granulation Not Reportable 08/14/19 00:01 Toxic Vacuolation Not Reportable 08/14/19 00:01 Dohle Bodies Not Reportable 08/14/19 00:01 Pelger-Huet Anomaly Not Reportable 08/14/19 00:01 Jd Rods Not Reportable 08/14/19 00:01 Platelet Estimate Appears decreased 08/14/19 00:01 Clumped Platelets Not Reportable 08/14/19 00:01 Plt Clumps, EDTA Not Reportable 08/14/19 00:01 Large Platelets Not Reportable 08/14/19 00:01 Giant Platelets Not Reportable 08/14/19 00:01 Platelet Satelliting Not Reportable 08/14/19 00:01 Plt Morphology Comment Not Reportable 08/14/19 00:01 RBC Morphology Not Reportable 08/14/19 00:01 Dimorphic RBCs Not Reportable 08/14/19 00:01 Polychromasia Not Reportable 08/14/19 00:01 Hypochromasia Not Reportable 08/14/19 00:01 Poikilocytosis Not Reportable 08/14/19 00:01 Anisocytosis 1+ 08/14/19 00:01 Microcytosis Not Reportable 08/14/19 00:01 Macrocytosis Not Reportable 08/14/19 00:01 Spherocytes Not Reportable 08/14/19 00:01 Pappenheimer Bodies Not Reportable 08/14/19 00:01 Sickle Cells Not Reportable 08/14/19 00:01 Target Cells Not Reportable 08/14/19 00:01 Tear Drop Cells Not Reportable 08/14/19 00:01 Ovalocytes 1+ 08/14/19 00:01 Helmet Cells Not Reportable 08/14/19 00:01 Wesley-Why Bodies Not Reportable 08/14/19 00:01 Hasty Rings Not Reportable 08/14/19 00:01 [place] Cells Not Reportable 08/14/19 00:01 Bite Cells Not Reportable 08/14/19 00:01 Crenated Cell Not Reportable 08/14/19 00:01 Elliptocytes Not Reportable 08/14/19 00:01 Acanthocytes (Spur) Not Reportable 08/14/19 00:01 Rouleaux Not Reportable 08/14/19 00:01 Hemoglobin C Crystals Not Reportable 08/14/19 00:01 Schistocytes Not Reportable 08/14/19 00:01 Malaria parasites Not Reportable 08/14/19 00:01 Kleber Bodies Not Reportable 08/14/19 00:01 Hem Pathologist Commnt No 08/14/19 00:01 Sodium 148 mmol/L (137-145) H 08/14/19 03:46 Potassium 4.3 mmol/L (3.6-5.0) 08/14/19 03:46 Chloride 115.8 mmol/L (98-107) H 08/14/19 03:46 Carbon Dioxide 20 mmol/L (22-30) L 08/14/19 03:46 Anion Gap 17 mmol/L 08/14/19 03:46 BUN 16 mg/dL (7-17) 08/14/19 03:46 Creatinine 0.9 mg/dL (0.7-1.2) 08/14/19 03:46 Estimated GFR > 60 ml/min 08/14/19 03:46 BUN/Creatinine Ratio 18 % 08/14/19 03:46 Glucose 77 mg/dL (65-100) 08/14/19 03:46 Calcium 8.8 mg/dL (8.4-10.2) 08/14/19 03:46 Troponin T < 0.010 ng/mL (0.00-0.029) 08/13/19 19:17 NT-Pro-B Natriuret Pep 117.0 pg/mL (0-900) 08/13/19 19:17 Triglycerides 65 mg/dL (2-149) 08/14/19 03:46 Cholesterol 136 mg/dL (50-199) 08/14/19 03:46 LDL Cholesterol Direct 92 mg/dL (50-130) 08/14/19 03:46 HDL Cholesterol 43 mg/dL (40-59) 08/14/19 03:46 Cholesterol/HDL Ratio 3.16 % 08/14/19 03:46 Urine Color Yellow (Yellow) 08/14/19 04:42 Urine Turbidity Clear (Clear) 08/14/19 04:42 Urine pH 5.0 (5.0-7.0) 08/14/19 04:42 Ur Specific Egnar 1.024 (1.003-1.030) 08/14/19 04:42 Urine Protein 30 mg/dl mg/dL (Negative) 08/14/19 04:42 Urine Glucose (UA) Neg mg/dL (Negative) 08/14/19 04:42 Urine Ketones Neg mg/dL (Negative) 08/14/19 04:42 Urine Blood Neg (Negative) 08/14/19 04:42 Urine Nitrite Neg (Negative) 08/14/19 04:42 Urine Bilirubin Neg (Negative) 08/14/19 04:42 Urine Urobilinogen 2.0 mg/dL (<2.0) 08/14/19 04:42 Ur Leukocyte Esterase Neg (Negative) 08/14/19 04:42 Urine WBC (Auto) 2.0 /HPF (0.0-6.0) 08/14/19 04:42 Urine RBC (Auto) < 1.0 /HPF (0.0-6.0) 08/14/19 04:42 U Epithel Cells (Auto) 1.0 /HPF (0-13.0) 08/14/19 04:42 Urine Mucus 1+ /HPF 08/14/19 04:42 Assessment and Plan Assessment and plan: Patient seen and examined, d/w STUDY LEAD, agree with plan as stated above, hold cardiology consult for now
[2019-08-14] MEDS ORDERED: ALBUTEROL 2.5 MG/3 ML NEBU IH PRN (01:51)
[2019-08-14 02:44] LABS: Basophils % (Manual) 0 % (0.0-1.8); Total Cells Counted 100
[2019-08-14 02:45] LABS: Anisocytosis 1+; Ovalocytes 1+; Platelet Estimate Appears Decreased
[2019-08-14] MEDS ORDERED: D5W/0.45% NACL 1,000 ML IV ONE (04:27)
[2019-08-14 04:40] LABS: BUN/Creatinine Ratio 18; Blood Urea Nitrogen 16 mg/dL (7-17); Calcium 8.8 mg/dL (8.4-10.2); Chol/HDL Ratio 3.16 %; HDL Cholesterol 43 mg/dL (40-59); Hemolysis Index 19; LDL Cholesterol,Direct 92 mg/dL (50-130)
[2019-08-14] MEDS: D5W/0.45% NACL 1,000 ML IV SCH ×2 (04:42→18:49)
[2019-08-14 05:05] LABS: Bilirubin,Urine NEG (Negative); Blood,Urine NEG (Negative); Color,Urine Yellow (Yellow); Mucus,Urine 1+ /HPF; RBC,Urine < 1.0 /HPF (0.0-6.0)
[2019-08-14] MEDS ORDERED: REGADENOSON 0.4 MG/5 ML INJ IV ONE ×2 (06:50→06:55)
[2019-08-14 07:43] LABS: Creatine Kinase MB < 1.0 ng/mL (0.0-4.0)
[2019-08-14] MEDS: NICOTINE 14 MG/24 HR PATCH TD SCH (12:18)
--- NOTE | 2019-08-14 14:49 | Discharge Summary ---
Providers - Providers Date of Admission: 08/14/19 01:13 Date of discharge: 08/14/19 Attending physician: KENZIE ZAVALA 08/14/19 Consult to Cardiac Rehabilitation [CONS] Routine Reason For Exam: Phase I Primary care physician: MARILIN FORREST Hospitalization Condition: Poor Hospital course: Patient is a 53 yo woman with a history of HIV noncompliant with meds, asthma, and bronchitis who presents [facility] ED with complaints of intermittent chest pain for the past 2-3 days. Additionally she complains of intermittent generalized headache. CT head was negative for acute abnormalities. CXR: IMPRESSION: 1. Cardiomegaly without CHF Acute Chest Pain, most likely costochondritiis R/O ACS -EKG shows sinus rhythm with nonspecific ST abnormalities -Initiate chest pain protocol -Continuous telemetry monitoring -Continue supportive care -Pain mgmt -Troponin neg x1 , will continue to trend -Lexiscan pending -Cardiology consulted Hyernatremia -Na on admission 149 -Slowly correct Na with free water -Continue to monitor Thrombocytopenia -Plt 113 -Denies use of antiplatelet drugs -Hold ASA Anemia -Hemoglobin on admission 9.5 -No s/s of active bleeding -Continue to monitor hemoglobin -Transfuse as needed Tobacco abuse -Smokes 1/3 pack per day -Counseled for cessation -Nicotine patch prn Asthma -Albuterol prn HIV -Off anti-retroviral meds for the past 2 years -Recently established with Dr. 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 prolonged inpatient services 31 minutes Disposition: DC-01 TO HOME OR SELFCARE Time spent for discharge: 34 minutes Core Measure Documentation - Palliative Care Palliative Care/ Comfort Measures: Not Applicable - Core Measures Any of the following diagnoses?: none - VTE Discharge Requirements Deep Vein Thrombosis/Pulmonary Embolism Present on Admission: No Has pt received <5 days of overlap therapy or INR<2.0: No Anticoagulant overlap therapy prescribed at discharge: No Contraindication No Overlap Therapy order at DC: Not Indicated Exam - Physical Exam Narrative exam: Gen: thin cachetic, bmi 17 NAD, Awake, Alert, Orientated HEENT: NCAT, EOMI, PERRL, OP Clear Neck: supple, no adenopathy, no thyromegaly, no JVD CVS/Heart: RRR, normal S1S2, pulses present bilaterally Chest/Lungs: CTA B, Symmetrical chest expansion, good air entry bilaterally, reproducible chest wall tenderness GI/Abdomen: soft, NTND, good bowel sounds, no guarding or rebound /Bladder: no suprapubic tenderness, no CVA or paraspinal tenderness Extermity/Skin: no c/c/e, no obvious rash MSK: FROM x 4 Neuro: CN 2-12 grossly intact, no new focal deficits Psych: calm - Constitutional Vitals: Temp Pulse Resp BP Pulse Ox 99.4 F 94 H 18 113/71 99 08/14/19 07:14 08/14/19 13:22 08/14/19 13:22 08/14/19 10:22 08/14/19 14:28 Plan Activity: other (no strenous activity unless cleared by PCP) Diet: low salt Special Instructions: record daily BP diary, smoking cessation Follow up with: MARILIN FORREST MD [Primary Care Provider] - 3-5 Days Prescriptions: Nicotine [Habitrol] 14 mg TD QDAY #14 patch
--- NOTE | 2019-08-14 22:46 | Treadmill Report ---
THALLIUM STRESS TEST LEFT VENTRICLE: Left ventricular chamber size is within normal spread. Perfusion study demonstrates homogeneous uptake of the tracer in all segments, no significant defects identified. Gated analysis demonstrates normal left ventricular systolic function, ejection fraction 70%. CONCLUSION: Normal myocardial perfusion study. JOB# [id number] CA/NTS
[2019-08-15 06:48] LABS: Hematocrit 28.6 % (30.3-42.9); Hemoglobin 9.1 gm/dl (10.1-14.3); Mean Corpuscular HGB Conc 32 % (30-34); Mean Corpuscular Volume 91 fl (79-97); Platelet Count 112 K/mm3 (140-440); Red Blood Count 3.16 M/mm3 (3.65-5.03); Red Cell Distribution Width 14.6 % (13.2-15.2)
[2019-08-15 07:03] LABS: Calcium 8.1 mg/dL (8.4-10.2)
[2019-08-15 08:20] VITALS: BP 120/78
[2019-08-15 09:19] LABS: Basophils % (Manual) 0 % (0.0-1.8); Total Cells Counted 100
[2019-08-15 09:20] LABS: Anisocytosis Few; Macrocytosis Few; Platelet Estimate Consistent w Auto
[2019-08-15] MEDS: NICOTINE 14 MG/24 HR PATCH TD SCH (09:39)
[2019-08-15] MEDS ORDERED: ASPIRIN 81 MG TAB CHEW PO SCH (10:00)
--- NOTE | 2019-08-15 11:17 | Discharge Summary ---
Providers - Providers Date of Admission: 08/14/19 01:13 Attending physician: MARGARETH STRICKLAND MD 08/14/19 Consult to Cardiac Rehabilitation [CONS] Routine Reason For Exam: Phase I Primary care physician: MARILIN DONAHUE Hospitalization Reason for admission: chest pain Condition: Poor Hospital course: Patient is a 53 yo woman with a history of HIV noncompliant with meds, asthma, and bronchitis who presents [facility] ED with complaints of intermittent chest pain for the past 2-3 days. Additionally she complains of intermittent generalized headache. CT head was negative for acute abnormalities. CXR: IMPRESSION: 1. Cardiomegaly without CHF Acute Chest Pain, most likely costochondritiis R/O ACS -EKG shows sinus rhythm with nonspecific ST abnormalities -STRESS TEST WAS NEGATIVE Hyernatremia -Na on admission 149 -corrrected Thrombocytopenia -Plt 113 -Denies use of antiplatelet drugs -Hold ASA Anemia -Hemoglobin on admission 9.5 -No s/s of active bleeding -Continue to monitor hemoglobin -Transfuse as needed Tobacco abuse -Smokes 1/3 pack per day -Counseled for cessation -Nicotine patch prn Asthma -Albuterol prn HIV -Off anti-retroviral meds for the past 2 years -Recently established with Dr. 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 Disposition: TO HOME OR SELFCARE Time spent for discharge: 35 mins Core Measure Documentation - Palliative Care Palliative Care/ Comfort Measures: Not Applicable - Core Measures Any of the following diagnoses?: none Exam - Physical Exam Narrative exam: Gen: thin cachetic, bmi 17 NAD, Awake, Alert, Orientated HEENT: NCAT, EOMI, PERRL, OP Clear Neck: supple, no adenopathy, no thyromegaly, no JVD CVS/Heart: RRR, normal S1S2, pulses present bilaterally Chest/Lungs: CTA B, Symmetrical chest expansion, good air entry bilaterally, reproducible chest wall tenderness GI/Abdomen: soft, NTND, good bowel sounds, no guarding or rebound /Bladder: no suprapubic tenderness, no CVA or paraspinal tenderness Extermity/Skin: no c/c/e, no obvious rash MSK: FROM x 4 Neuro: CN 2-12 grossly intact, no new focal deficits Psych: calm - Constitutional Vitals: Temp Pulse Resp BP Pulse Ox 98.6 F 78 18 120/78 100 08/15/19 07:27 08/15/19 03:53 08/15/19 08:25 08/15/19 07:27 08/15/19 03:53 Plan Follow up with: MARILIN DONAHUE MD [Primary Care Provider] - 3-5 Days JACKIE NICOLAS MD [Staff Physician] - 7 Days Prescriptions: Nicotine [Habitrol] 14 mg TD QDAY #14 patch ALBUTEROL NEB's [Proventil 0.083% NEBS] 2.5 mg IH Q6H PRN #30 ml PRN Reason: Shortness Of Breath Other Discharge Orders: Nebulizer (Amb) Location: None Selected
== END 2019-08-15 17:06 | disposition home or self-care (01) ==
LOC: ED 16:27 → 4A 08-14 01:13
PROVIDERS: ADMIT Internal Medicine; ATTEND Internal Medicine
DX: R07.89 Other chest pain (principal); E87.0 Hyperosmolality and hypernatremia; D69.6 Thrombocytopenia, unspecified; D64.9 Anemia, unspecified; F17.210 Nicotine dependence, cigarettes, uncomplicated; J45.909 Unspecified asthma, uncomplicated; Z21 Asymptomatic human immunodeficiency virus [HIV] infection status; Z98.891 History of uterine scar from previous surgery; Z98.51 Tubal ligation status; Z79.82 Long term (current) use of aspirin
CPT/HCPCS: 36415; 70450; 71046; 78452; 80048; 80061; 81001; 82550; 82553; 83880; 84484; 85007; 85025; 93005; 93010; 93017; 96374; 96375; 99284; A9270; A9502; G0378; J2270; J2405; J2785